=== PATIENT | female | born 1980 | race Native Hawaiian/Other Pacific Islander ===

== ENCOUNTER 2019-03-30 09:26 | Emergency (ER) | payer OTHER ==
[~2019-03-30] VITALS: Ht 165.1 cm; Wt 59.0 kg
[2019-03-30 09:37] VITALS: BP 118/82; TEMP 98.5
== END 2019-03-30 12:49 | disposition home or self-care (01) ==
LOC: ED 09:26
DX: S63.501A Unspecified sprain of right wrist, initial encounter (principal); W20.8XXA Other cause of strike by thrown, projected or falling object, initial encounter
CPT/HCPCS: 99282; 99283; J1885

== ENCOUNTER 2019-04-28 12:56 | Outpatient (CLI) | payer OTHER | END 2019-04-28 19:11 | disposition home or self-care (01) | LOC: RAD 12:56 | DX: M54.17 Radiculopathy, lumbosacral region (principal) ==

== ENCOUNTER 2019-05-11 11:02 | Outpatient (CLI) | payer OTHER | END 2019-05-11 19:21 | disposition home or self-care (01) | LOC: RAD 11:02 | DX: J44.1 Chronic obstructive pulmonary disease with (acute) exacerbation (principal) ==

== ENCOUNTER 2019-06-28 14:36 | Outpatient (CLI) | payer OTHER | END 2019-06-28 22:34 | disposition home or self-care (01) | LOC: LAB 14:36 | DX: Z32.01 Encounter for pregnancy test, result positive (principal) | CPT/HCPCS: 84702 ==